=== PATIENT | male | born 1950 | race Caucasian/White ===

== ENCOUNTER 2019-01-18 19:40 | Observation (INO) | payer OTHER ==
--- NOTE | 2019-01-18 20:20 | EDPHY ---
H & P Time Seen by Provider: 01/18/19 20:19 HPI/ROS: Chief complaint. High blood pressure, head ache HPI. 68-year-old male with history of hypertension presents with high blood pressure today. He took his blood pressure at home 220/110. He also notes that he had now bleeding on the white part of his left eye. Some headache since noon. His vision is otherwise okay. No chest pain or shortness of breath. He takes ramipril 5 mg in the morning and 10 mg at night. He took an extra 10 mg ramipril 4 hr prior to arrival. Normally his blood pressure is well controlled on the ramipril. ROS 10 systems were reviewed and negative with the exception of the elements mentioned in the history of present illness Past Medical/Surgical History: Hypertension, spinal fusion, tonsil cancer Social History: , nonsmoker, no alcohol Smoking Status: Never smoked Physical Exam: General Appearance: Alert well-developed male mild distress vital signs significant for initial blood pressure 233/138 Eyes: Pupils equal round reactive. There is a left subconjunctival hemorrhage. ENT, Mouth: Mucous membranes are moist. Respiratory: There are no retractions, lungs are clear to auscultation. Cardiovascular: Regular rate and rhythm. Gastrointestinal: Abdomen is soft and nontender, no masses, bowel sounds normal. Neurological: Awake and alert, sensory and motor exams grossly normal. Skin: Warm and dry, no rashes. Musculoskeletal: Neck is supple nontender. Extremities symmetrical, full range of motion. Psychiatric: Patient is oriented X 3, there is no agitation. Constitutional: Initial Vital Signs Temperature (C) 36.7 C 01/18/19 19:48 Heart Rate 81 01/18/19 19:48 Respiratory Rate 18 01/18/19 19:48 Blood Pressure 233/138 H 01/18/19 19:48 O2 Sat (%) 96 01/18/19 19:48 O2 Delivery Mode Room Air Allergies/Adverse Reactions: acetaminophen [From Vicodin] Allergy (Verified 01/18/19 19:52) GI/ITCHING hydrocodone bitartrate [From Vicodin] Allergy (Verified 01/18/19 19:52) GI/ITCHING hydromorphone HCl [From Dilaudid] Allergy (Verified 01/18/19 19:52) RASH/DIFF BREATHING Home Medications: Medication Instructions Recorded Atorvastatin Calcium 01/18/19 Ramipril 01/18/19 Medical Decision Making - Diagnostics EKG Interpretation: EKG interpreted by me shows normal sinus rhythm normal interval and axis. QRS is normal. Minimal ST elevation anterior leads. Inverted T-waves in leads [address]VL[address] No [address] elevation or depression. No arrhythmia. The rate is 71 Imaging Results: Imaging Impressions Head CT 01/18/19 20:29 Impression: Nothing acute identified. Specifically no hemorrhage. Results called to Dr. Dexter Dobbs at 9:23 PM. General information for patients regarding this examination can be found at [email or web address]. If you have questions or comments about this report, please contact me at [phone] (hospital) or [phone] (cell). Noncontrast head CT shows no hemorrhage. Reviewed by me and discussed with Dr. Holder Procedures: IV normal saline, monitor Repeat blood pressure is 237/113 IV labetalol ED Course/Re-evaluation: Re-evaluation 9:15 p.m.. Blood pressure is 197/114. 9:30 p.m. blood pressure 169/97. Patient is stable and feeling better Patient and I and his discussed imaging lab EKG findings. We discussed treatment plan including recommendation for admission. He expresses understanding and agreement I consulted and discussed the case with Dr. Joy, hospitalist, who agrees to the admission Differential Diagnosis: Hypertensive urgency. No evidence of intracranial bleeding. He does have a subconjunctival hemorrhage. - Data Points Laboratory Results: Laboratory Results 01/18/19 20:26 01/18/19 20:26 01/18/19 01/18/19 01/18/19 20:32 20:26 20:26 WBC 6.92 10^3/uL 10^3/uL (3.80-9.50) RBC 5.44 10^6/uL 10^6/uL (4.40-6.38) Hgb 16.1 g/dL g/dL (13.7-17.5) Hct 46.6 % % (40.0-51.0) MCV 85.7 fL fL (81.5-99.8) MCH 29.6 pg pg (27.9-34.1) MCHC 34.5 g/dL g/dL (32.4-36.7) RDW 12.7 % % (11.5-15.2) Plt Count 216 10^3/uL 10^3/uL (150-400) MPV 9.5 fL fL (8.7-11.7) Neut % (Auto) 68.5 % % (39.3-74.2) Lymph % (Auto) 19.7 % % (15.0-45.0) [place] % (Auto) 7.9 % % (4.5-13.0) Eos % (Auto) 3.3 % % (0.6-7.6) Baso % (Auto) 0.3 % % (0.3-1.7) Nucleat RBC Rel Count 0.0 % % (0.0-0.2) Absolute Neuts (auto) 4.74 10^3/uL 10^3/uL (1.70-6.50) Absolute Lymphs (auto) 1.36 10^3/uL 10^3/uL (1.00-3.00) Absolute Monos (auto) 0.55 10^3/uL 10^3/uL (0.30-0.80) Absolute Eos (auto) 0.23 10^3/uL 10^3/uL (0.03-0.40) Absolute Basos (auto) 0.02 10^3/uL 10^3/uL (0.02-0.10) Absolute Nucleated RBC 0.00 10^3/uL 10^3/uL (0-0.01) Immature Gran % 0.3 % % (0.0-1.1) Immature Gran # 0.02 10^3/uL 10^3/uL (0.00-0.10) Sodium 137 mEq/L mEq/L (135-145) Potassium 4.0 mEq/L mEq/L (3.5-5.2) Chloride 104 mEq/L mEq/L (97-110) Carbon Dioxide 22 mEq/l mEq/l (22-31) Anion Gap 11 mEq/L mEq/L (6-14) BUN 21 mg/dL mg/dL (7-23) Creatinine 0.9 mg/dL mg/dL (0.7-1.3) Estimated GFR > 60 Glucose 113 mg/dL H mg/dL (70-100) Calcium 10.5 mg/dL H mg/dL (8.5-10.4) POC Troponin I 0.00 ng/mL ng/mL (0.00-0.08) Medications Given: Discontinued Medications Labetalol HCl (Trandate Injection) 20 mg IVP EDNOW ONE Stop: 01/18/19 20:31 Last Admin: 01/18/19 20:45 Dose: 20 mg Point of Care Test Results: Chemistry 01/18/19 20:32 POC Troponin I 0.00 ng/mL ng/mL (0.00-0.08) Departure - Departure Disposition: [facility] Inpatient Acute Clinical Impression: Hypertensive urgency, Subconjunctival hemorrhage of left eye Condition: Fair
[2019-01-18] MEDS ORDERED: LABETALOL HCL 5 MG/ML 20 ML MDV IVP ONE (20:30)
[2019-01-18 20:36] LABS: PLATELET COUNT 216 10^3/uL (150-400)
--- NOTE | 2019-01-18 21:44 | CPEKG ---
Test Reason : OPEN Blood Pressure : / mmHG Vent. Rate : 071 BPM Atrial Rate : 071 BPM P-R Int : 187 ms QRS Dur : 075 ms QT Int : 387 ms P-R-T Axes : 030 040 096 degrees QTc Int : 421 ms Sinus rhythm Minimal ST elevation, anterior leads Confirmed by Park Dobbs ([id number]) on 01/18/2019 9:44:37 PM Referred By: PARK DOBBS Confirmed By:Park Dobbs
[2019-01-18] MEDS ORDERED: ONDANSETRON DISINTEGRATING 4 MG TAB PO PRN (22:24)
[2019-01-18] MEDS ORDERED: ACETAMINOPHEN 325 MG TAB PO PRN (22:24)
[2019-01-18] MEDS ORDERED: ONDANSETRON 4 MG/2 ML VIAL IVP PRN (22:24)
[2019-01-18] MEDS ORDERED: hydrALAZINE 25 MG TAB PO PRN (22:25)
--- NOTE | 2019-01-19 00:39 | PDGENHP ---
History and Physical - Chief Complaint Hypertension - History of Present Illness 68 yo M w/ hx of HTN presents with elevated blood pressure. The patient had a chiropractor visit this morning for lower back pain. He got home and noted a headache so he checked his blood pressure and noted SBP>200 for several hours so he came in to the ED for evaluation. He denies any acute illness. He has been compliant with his ramipril (5 mg qAM, 10 mg qHS). He did eat a frozen lasagna last night, which is an unusually unhealthy dinner for him. He received labetalol IV in the ED with good response. CTH was unremarkable. There is no evidence of end organ damage on laboratory work-up and he is without complaint at the time of my evaluation. He is being admitted for observation and blood pressure management. Case discussed with Dr. Joy; records reviewed and summarized above. History Information - Allergies/Home Medication List Allergies/Adverse Reactions: hydrocodone bitartrate [From Vicodin] Allergy (Verified 01/18/19 19:52) GI/ITCHING hydromorphone HCl [From Dilaudid] Allergy (Verified 01/18/19 19:52) RASH/DIFF BREATHING Home Medications: Aspirin [Aspirin 81mg (*)] 81 mg PO DAILY 01/18/19 [Last Taken Unknown] Atorvastatin Calcium [Lipitor 40 mg (*)] 40 mg PO DAILY 01/18/19 [Last Taken 11/07] Herbals/Supplements -Info Only 1 ea PO DAILY 01/18/19 [Last Taken Unknown] Multivitamins [Multivitamin (*)] 1 each PO DAILY 01/18/19 [Last Taken Unknown] Ramipril [Altace 5mg (*)] 5 mg PO DAILY 01/18/19 [Last Taken Unknown] Ramipril [Altace 5mg (*)] 10 mg PO HS 01/18/19 [Last Taken Unknown] I have personally reviewed and updated: family history, medical history - Past Medical History hypertension - Surgical History Reports: spinal surgery - Family History Negative for: hypertension - Social History Smoking Status: Never smoked Review of Systems Review of Systems: ROS: 10pt was reviewed & negative except for what was stated in HPI & below Physical Exam Physical Exam: Temp Pulse Resp BP Pulse Ox 36.6 C 61 12 164/112 H 97 01/18/19 22:54 01/18/19 22:54 01/18/19 22:54 01/18/19 22:54 01/18/19 22:54 Constitutional: no apparent distress, not in pain Eyes: PERRL, EOMI Ears, Nose, Mouth, Throat: moist mucous membranes, no oral mucosal ulcers Cardiovascular: regular rate and rhythym, no murmur, rub, or gallop Respiratory: no respiratory distress, clear to auscultation Gastrointestinal: normoactive bowel sounds, soft, non-tender abdomen Skin: warm, normal color Musculoskeletal: full muscle strength, no muscle tenderness Neurologic: AAOx3, CN II-XII Intact Psychiatric: interacting appropriately, not anxious Lab Data & Imaging Review 01/18/19 20:26 01/18/19 20:26 WBC 6.92 10^3/uL (3.80-9.50) 01/18/19 20: RBC 5.44 10^6/uL (4.40-6.38) 01/18/19 20:26 Hgb 16.1 g/dL (13.7-17.5) 01/18/19 20:26 Hct 46.6 % (40.0-51.0) 01/18/19 20:26 MCV 85.7 fL (81.5-99.8) 01/18/19 20:26 MCH 29.6 pg (27.9-34.1) 01/18/19 20: MCHC 34.5 g/dL (32.4-36.7) 01/18/19 20: RDW 12.7 % (11.5-15.2) 01/18/19 20:26 Plt Count 216 10^3/uL (150-400) 01/18/19 20:26 MPV 9.5 fL (8.7-11.7) 01/18/19 20:26 Neut % (Auto) 68.5 % (39.3-74.2) 01/18/19 20:26 Lymph % (Auto) 19.7 % (15.0-45.0) 01/18/19 20:26 [place] % (Auto) 7.9 % (4.5-13.0) 01/18/19 20:26 Eos % (Auto) 3.3 % (0.6-7.6) 01/18/19 20:26 Baso % (Auto) 0.3 % (0.3-1.7) 01/18/19 20: Nucleat RBC Rel Count 0.0 % (0.0-0.2) 01/18/19 20: Absolute Neuts (auto) 4.74 10^3/uL (1.70-6.50) 01/18/19 20: Absolute Lymphs (auto) 1.36 10^3/uL (1.00-3.00) 01/18/19 20: Absolute Monos (auto) 0.55 10^3/uL (0.30-0.80) 01/18/19 20: Absolute Eos (auto) 0.23 10^3/uL (0.03-0.40) 01/18/19 20: Absolute Basos (auto) 0.02 10^3/uL (0.02-0.10) 01/18/19 20: Absolute Nucleated RBC 0.00 10^3/uL (0-0.01) 01/18/19 20: Immature Gran % 0.3 % (0.0-1.1) 01/18/19 20: Immature Gran # 0.02 10^3/uL (0.00-0.10) 01/18/19 20: Sodium 137 mEq/L (135-145) 01/18/19 20: Potassium 4.0 mEq/L (3.5-5.2) 01/18/19 20: Chloride 104 mEq/L (97-110) 01/18/19 20: Carbon Dioxide 22 mEq/l (22-31) 01/18/19 20: Anion Gap 11 mEq/L (6-14) 01/18/19 20:26 BUN 21 mg/dL (7-23) 01/18/19 20: Creatinine 0.9 mg/dL (0.7-1.3) 01/18/19 20: Estimated GFR > 60 01/18/19 20:26 Glucose 113 mg/dL (70-100) H 01/18/19 20:26 Calcium 10.5 mg/dL (8.5-10.4) H 01/18/19 20:26 POC Troponin I 0.00 ng/mL (0.00-0.08) 01/18/19 20:32 Imaging Review: Imaging Impressions Head CT 01/18/19 20:29 Impression: Nothing acute identified. Specifically no hemorrhage. Results called to Dr. Dexter Dobbs at 9:23 PM. General information for patients regarding this examination can be found at [email or web address]. If you have questions or comments about this report, please contact me at (hospital) or [phone] (cell). Visualized and Interpreted EKG results: Yes EKG Interpretation: Positive for: normal sinsus rhythm, NS ST wave abnormalities Assessment & Plan Assessment: 68 yo M w/ HTN presents w/ hypertensive urgency. Plan: 1. Hypertensive urgency - Unclear trigger; patient does not check BP regularly so difficult to know what his baseline control is. He denies acute illness, CTH (personally reviewed/interpreted) unremarkable; laboratory work-up w/ no evidence of end-organ damage. Clinical picture not concerning for pheochromocytoma, electrolytes normal so low suspicion for hyperaldosteronism as well. - Observe in PCU - Hydralazine PRN for SBP>180 - Increase ramipril to 10 mg BID (this is max dose) - Will start HCTZ 12.5 mg daily Diet - Regular Code - Full Ppx - LMWH Dispo - Admit under observation status
[2019-01-19 04:37] LABS: PLATELET COUNT 211 10^3/uL (150-400)
[2019-01-19] MEDS ORDERED: HYDROCHLOROTHIAZIDE 12.5 MG CAP PO SCH (09:00)
[2019-01-19] MEDS ORDERED: ENOXAPARIN 40 MG/0.4 ML SYR SC SCH (09:00)
[2019-01-19] MEDS ORDERED: RAMIPRIL 5 MG CAP PO SCH ×2 (09:00→21:00)
[2019-01-19] MEDS ORDERED: Herbals/Supplements -Info Only PO SCH (09:00)
[2019-01-19] MEDS ORDERED: MULTIVITAMINS 1 EACH TAB PO SCH (09:00)
[2019-01-19] MEDS ORDERED: ASPIRIN 81 MG CHEWABLE TAB PO SCH (09:00)
[2019-01-19] MEDS ORDERED: ATORVASTATIN CALCIUM 40 MG TAB PO SCH (09:00)
[2019-01-19 11:07] VITALS: BP 153/89
--- NOTE | 2019-01-19 11:39 | PDDCSUM ---
Discharge Summary Discharge Summary: Discharge diagnoses: Accelerated HTN, resolved HTN Back pain, h/o spine surgery Headache, resolved Hospital course: The pt is a 68yo M w/ H/o HTN who p/w elevated BP and NAVARRO. He had a chiropractic session earlier the same day for low back pain. When he got home, he had a NAVARRO and his SBP was >200. He went to the ED for further evaluation. His blood pressure responded to IV labetalol and he was monitored in the hospital overnight. His ramipril was increased to 10mg BID and HCTZ 12.5mg daily was added to his regimen. He was discharged to home in stable condition with instructions to continue medication mgmt for HTN with his PCP. BP on discharge was 153/89. Follow up/instructions: with PCP in 1-2 weeks with BP log. Meds: resume home meds, changes noted above in hospital course.
--- NOTE | 2019-01-19 11:56 | ASDISCHSUM ---
Discharge Information Plan Status:Home with No Needs Medically Cleared to Leave:01/19/2019 Discharge Date:01/19/2019 CM D/C Disposition:Home, Routine, Self-Care ADT D/C Disposition:Home, Routine, Self-Care Projected Discharge Date:01/19/2019 Transportation at D/C: Discharge Delay Reason: Follow-Up Date:01/19/2019 Discharge Slot: Final Diagnosis: Placement Information Patient Contact Information Contact Name:RUI Relationship: Address:[address] [place] [address] City:[place] Alternate Phone: [facility]/Zip Code:[place] [address] Email: Financial Information Financial Class:Medicare Primary Plan Desc:MEDICARE INPATIENT Primary Plan Number:[id number] Secondary Plan Desc: Secondary Plan Number: Assessment Information LACE LACE Length of stay for Answers: Less than 1 day current admission Acuity / Level of Answers: Yes Care: Did the patient have an inpatient admission? Comorbidities - select Answers: Other Notes: HTN all that apply # of Emergency department Answers: 1-2 visits in the last 6 months Score: 5 Date Signed: 01/19/2019 11:54 AM Electronically Signed By:Martha Jacome RN Intervention Information
== END 2019-01-19 13:14 | disposition home or self-care (01) ==
LOC: INTOOBSV 21:45 → F2W 22:48
PROVIDERS: ADMIT Family Medicine; ATTEND Internal Medicine
DX: I16.0 Hypertensive urgency (principal); H11.32 Conjunctival hemorrhage, left eye; Z98.1 Arthrodesis status; Z85.89 Personal history of malignant neoplasm of other organs and systems
CPT/HCPCS: 70450; 93005; 96374; 99285; G0378; J1650; 84484-ER